=== PATIENT | male | born 1960 | race Caucasian/White ===

== ENCOUNTER 2023-11-19 12:54 | Emergency (ER) | payer BC, SELFPAY ==
[2023-11-19 12:55] VITALS: BP 124/71; PULSE 95; RESP 16; TEMP 36.5; O2SAT 97; BMI 27.4
--- NOTE | 2023-11-19 12:58 | ED.RN ---
PT STATES HE DOES NOT WANT TO FILE UNDER WORKERS COMP
[2023-11-19] MEDS: Diphth,Pertuss(Acell),Tet Vac 0.5 ML Vial IM (14:15)
--- NOTE | 2023-11-19 14:16 | EDS_ITS ---
HPI History of Present Illness Chief Complaint: Laceration Informant: patient Narrative Narrative: 63-year-old male presenting to the emergency room with an anterior medial left forearm laceration. Patient was using a knife to clean old tar off of a cement trough when he sustained laceration. He states that he knows he had a tetanus shot about 7 years ago is unsure of last year he received a tetanus update when he had skin grafting. Tetanus Immunization: 5-10 years PFS PFS Medical History no medical history Allergy/AdvReac Type Severity Reaction Status Date / Time No Known Allergies Allergy Verified 11/19/23 12:55 Family History no significant family his Surgical History (Updated 11/19/23 @ 14:[address] Carson Kwok DO) H/O skin graft Social History household members: family housing: house current occupational status: employed Smoking Status: Current every day smoker tobacco type: cigarettes ROS ROS ED Constitutional Constitutional ED: Denies chills or weight loss Eyes Eyes: Denies change in vision or diplopia ENT ENT ED: Denies ear pain, rhinorrhea or sore throat Cardiovascular Cardiovascular: Denies chest pain, orthopnea, palpitations or racing heartbeat Respiratory/Chest Respiratory/Chest: Denies cough, dyspnea or orthopnea Gastrointestinal Gastrointestinal: Denies abdominal pain, diarrhea, nausea or vomiting Genitourinary Genitourinary ED: Denies dysuria, hematuria or urinary frequency Musculoskeletal Musculoskeletal: Denies arthralgias or myalgias Integumentary Reports other Details: See HPI ; Denies abscess or rash Neurologic Neurologic: Denies headache(s) or weakness Psychiatric Psychiatric: Denies anxiety, depression, suicidal ideation or suicidal thoughts Endocrine Endocrinology: Denies polydipsia, polyphagia or polyuria Allergic/Immunologic Allergic/Immunologic ED: Denies mouth swelling, tongue swelling or urticaria EXAM Physical Exam Const Vital Signs: 11/19/23 12:55 Temperature 97.7 F L Temperature Source Temporal Pulse Rate 95 Respiratory Rate 16 Blood Pressure 124/71 H Blood Pressure Mean 88 Pulse Ox 97 Oxygen Delivery Method Room Air Positive well nourished and well developed General Appearance ED: well developed HEENT Reports normocephalic, head/scalp atraumatic and moist mucous membranes Eyes PERRL and EOMs intact bilaterally Neck no lymphadenopathy, supple and no JVD Resp normal respiratory effort and clear to auscultation bilaterally Cardio regular rate, regular rhythm and no murmurs GI normal to inspection, nondistended, normoactive bowel sounds and non-tender Palpation: soft Back/Spine no CVA tenderness and normal ROM Extremity Extremity Narrative: There is a 2.5 cm laceration over the medial anterior aspect of the left forearm. It is into subcutaneous tissue. I do not see any fascial violation. Wound appears clean. No active bleeding. Neurovascular intact distal. General Extremety ED: Negative for edema General Extremity: Negative for edema Neuro oriented x3 and CN's II-XII intact bilaterally Sensorium / Orientation: alert Motor Exam: strength 5/5 throughout Psych mental status grossly normal Mood & Affect: Negative for depressed or tearful Skin no rashes or lesions noted and no wounds MDM MDM MDM Narrative Medical decision making narrative: Wound was locally anesthetized using 1% lidocaine. It was washed with Shur- Clens irrigated with approximately 200 cc of sterile saline and then closed using a total of 4 simple interrupted 4-0 Ethilon sutures. Wound dressed with bacitracin and dry dressing. Wound care discussed with patient. Stitches will need to be removed in about 10 days. Patient understands the plan and is comfortable with it. Return instructions given. History & Record Review Discussion w/independent historian: Patient Discharge Plan Triage Chief Complaint: Laceration ED Provider: Carson Kwok Dx/Rx/DC Orders Clinical Impression: Forearm laceration Instructions: ED Laceration Extremity Primary Care Provider: Madi Cartwright Referrals: Madi Cartwright MD [Primary Care Provider] - 10 Day for suture removal Print Language: Lithuanian Disposition Disposition: Home, Self Care Discharge Date/Time: 11/19/23 14:26
--- NOTE | 2023-11-19 14:25 | ED.RN ---
Pt was advised to wait 20min after injection. pt refused. observed ambulating out of department without difficulty.
== END 2023-11-19 14:26 | disposition home or self-care (01) ==
PROVIDERS: Emergency Provider Emergency Medicine; PCP Family Medicine; Visit Provider Emergency Medicine
DX: S51.812A Laceration without foreign body of left forearm, initial encounter (principal); F17.210 Nicotine dependence, cigarettes, uncomplicated; W26.0XXA Contact with knife, initial encounter; Z23 Encounter for immunization
CPT/HCPCS: 12001; 90471; 90715; 99283